=== PATIENT | female | born 1985 | race Caucasian/White ===

== ENCOUNTER 2016-07-28 14:34 | Emergency (ER) | payer OTHER ==
[2016-07-28 14:46] VITALS: BP 134/93; PULSE 93; TEMP 97.2; BMI 24.3
[2016-07-28] MEDS ORDERED: AMOXICILLIN 500 MG CAPSULE (FP) PO ONE (15:19)
--- NOTE | 2016-07-28 15:19 | PDOC ---
History of Present Illness <Ruthie Michelle - Last Filed: 07/28/16 15:42> - History of Present Illness Initial Comments: 07/28/16 15:41 History of Present Illness <Mai Moe - Last Filed: 07/28/16 15:21> - History of Present Illness Initial Comments: 07/28/16 15:26 The patient is a 30 year old female with no past medical hx who presents to the ED complaining of left ear pain since last night. The patient reports she took Nyquil last night and woke up with worsening left ear pain. The patient reports she took Flagyl and Advil this morning with little relief of pain. She reports she also has a sore throat, which started two weeks ago. She notes she has pain with swallowing. The patient states she got the flu shot this year and denies any recent sick contacts. The patient's LMP was today. The patient denies right ear pain, dizziness, nausea, cough, SOB, chills Allergies:NKDA <Ruthie Michelle - Last Filed: 07/28/16 15:27> <Mai Moe - Last Filed: 07/28/16 15:46> - General Chief Complaint: Ear Problem Stated Complaint: LEFT EAR PAIN Time Seen by Provider: 07/28/16 15:08 Past History <Ruthie Michelle - Last Filed: 07/28/16 15:42> - Past Medical History Other medical history: DENIES - Psycho/Social/Smoking Cessation Hx Anxiety: No Suicidal Ideation: No Smoking History: Never smoked Have you smoked in the past 12 months: No Hx Alcohol Use: Yes (occasional) Drug/Substance Use Hx: No Substance Use Type: None <Mai Moe - Last Filed: 07/28/16 15:46> - Past Medical History Allergies/Adverse Reactions: Allergies Allergy/AdvReac Type Severity Reaction Status Date / Time No Known Allergies Allergy Verified 05/28/16 15:47 Home Medications: Ambulatory Orders Amoxicillin - [Amoxicillin 500mg Capsule -] 500 mg PO TID #21 capsule 07/28/16 Neomycin/Polymyxn/Hc [Cortisporin Otic Suspenstion -] 4 drop TID #1 bottle Review of Systems - Review of Systems Able to Perform ROS?: Yes Comments:: 07/28/16 15:20 Remainder of the review of systems is negative - HPI 12 point review of systems is as per history of present illness and otherwise negative <VivianaRuthie - Last Filed: 07/28/16 15:42> *Physical Exam - Vital Signs Last Vital Signs Temp Pulse Resp BP Pulse Ox 97.2 F L 93 H 18 134/93 100 07/28/16 14:35 07/28/16 14:35 07/28/16 14:35 07/28/16 14:35 07/28/16 14:35 <HenrrydaiRuthie - Last Filed: 07/28/16 15:42> - Vital Signs Last Vital Signs Temp Pulse Resp BP Pulse Ox 97.2 F L 93 H 18 134/93 100 07/28/16 14:35 07/28/16 14:35 07/28/16 14:35 07/28/16 14:35 07/28/16 14:35 - Physical Exam Comments: 07/28/16 15:41 *Physical Exam - Vital Signs Last Vital Signs Temp Pulse Resp BP Pulse Ox 97.2 F L 93 H 18 134/93 100 07/28/16 14:35 07/28/16 14:35 07/28/16 14:35 07/28/16 14:35 07/28/16 14:35 - Physical Exam Comments: 07/28/16 15:26 GENERAL: The patient is awake, alert, and answering questions, in no respiratory distress HEAD: Normal with no signs of trauma. EYES: Normal ERICK ENT: The right TM is mildly thickened with no erythema, the left TM is erythematous and thickened and the left canal is erythematous and thickened, without debris or discharge. NECK: Normal range of motion, supple without lymphadenopathy LUNGS: Lungs Clear, Normal Breath Sounds HEART: Regular rate and rhythm, normal S1 and S2 without murmur, rub or gallop. EXTREMITIES: Normal range of motion, no edema. No clubbing or cyanosis. No cords, erythema, or tenderness. NEUROLOGICAL: Cranial nerves II through XII grossly intact. Normal speech, normal gait. Grossly nonfocal neurologic exam PSYCH: Normal mood, normal affect. SKIN: Warm, Dry, normal turgor, no rashes or lesions noted. <Ruthie Michelle - Last Filed: 07/28/16 15:26> <Mai Moe - Last Filed: 07/28/16 15:46> Medical Decision Making - Medical Decision Making 07/28/16 15:21 30-year-old female with left sided otitis media, and otitis externa There is mild erythema of the throat, without exudate or acute tonsillitis Will treat with amoxicillin, and Cortisporin Otic solution <Mai Moe - Last Filed: 07/28/16 15:46> *DC/Admit/Observation/Transfer - Attestations Scribe Attestion: 07/28/16 15:20 Documentation prepared by Ruthie Michelle, acting as medical records coordinator for Mai Moe MD/. <Ruthie Michelle - Last Filed: 07/28/16 15:42> <Mai Moe - Last Filed: 07/28/16 15:46> Diagnosis at time of Disposition: Left otitis media, Otitis externa of left ear - Discharge Dispostion Disposition: HOME Condition at time of disposition: Stable - Referrals Referrals: Shemar Padilla MD [Staff Physician] - (ENT-please call if you are not improving ) - Patient Instructions Printed Discharge Instructions: Middle Ear Infection, Otitis Externa, DI for Otitis Externa Additional Instructions: Tqusfebkond-viixfvmwic-dyc pill 3 times a day Cortisporin [id number]-[id number]-5 drops to left ear 3 times a day Tylenol or Motrin for pain if needed Followup with your primary care physician in 24-48 hours Return immediately if you worsen in any way Take your medications as directed Follow-up with ENT-Dr. Padilla-if you are not improving-please call for an appointment - Post Discharge Activity Work/School Note: Back to Work
[2016-07-28] MEDS ORDERED: AMOXICILLIN 250 MG CAPSULE ONE (15:46)
== END 2016-07-28 15:57 | disposition home or self-care (01) ==
LOC: FER 14:34
DX: H66.92 Otitis media, unspecified, left ear (principal); H60.92 Unspecified otitis externa, left ear
CPT/HCPCS: 99282-25